=== PATIENT | male | born 1955 | race Caucasian/White ===

== ENCOUNTER 2023-12-12 06:35 | Emergency (ER) | payer OTHER, SELFPAY ==
[2023-12-12 06:52] VITALS: BP 160/110; PULSE 88; TEMP 36.4; O2SAT 96; O2SAT 97; BMI 30.2
[2023-12-12 06:53] VITALS: BP 149/106
[2023-12-12 07:01] VITALS: O2SAT 97
--- NOTE | 2023-12-12 07:18 | ED.GENADUL1 ---
HPI HPI - General Adult General Chief complaint: Shortness of Breath/Dyspnea Stated complaint: sinus fever pain all over Time Seen by Provider: 12/12/23 07:03 Source: patient Mode of arrival: walk-in Limitations: no limitations History of Present Illness HPI narrative: This patient is here planing of some shortness of breath. He says he woke up about 4:00 and had profound nasal stuffiness congestion and pressure in his sinuses. He took some medications he actually says he is feeling better now. We have no previous records of him here. He quit smoking back in 1975 but occasionally uses marijuana. He denies any history of hypertension diabetes or heart disease. He is not running a fever at home. He blew some yellow nasal discharge out earlier but not having any nasal congestion at this time. Denies any heaviness pressure or discomfort in his chest. No dyspnea with exertion. He does not see his doctor on a regular basis. He does not like coming to the hospital. He states he just drove a family member home from the [facility] for pneumonia and he is worried about having pneumonia. He has not had COVID vaccines or any pneumonia vaccines. Related Data Allergies Allergy/AdvReac Type Severity Reaction Status Date / Time codeine Allergy Hives Verified 12/12/23 06:59 opioids Allergy Hives Uncoded 12/12/23 06:59 Opioid HPI Opioid Management Most Recent Opioid Data: Last Pain Scale 8 12/12/23 07:02 Last ED Pain Assessment 12/12/23 07:01 Exam Narrative Exam Narrative: This patient is awake alert no apparent distress says he feels much better at this time does not have the facial pain and sinus pressure that he had earlier. There is no respiratory distress. His color is good his skin is warm and dry. His blood pressure is modestly elevated. He states he has never been told that his pressures been high at his doctor's office or at home. Cognition and mental status are normal. There is no neurological symptomatology or deficits. He has no nuchal rigidity or headache at this time. His lungs are completely clear with no wheeze rales rhonchi or prolonged exhalation's. He is not coughing. Heart sounds are normal with no clicks rubs gallops or murmur. Extremities show no evidence of phlebitis edema or tenderness. He has no abdominal symptomatology at all. Constitutional Vital Signs, click to edit/add: Last Vital Signs Temp 97.6 F 12/12/23 06:52 Pulse 88 12/12/23 06:52 Resp 20 12/12/23 06:52 BP 149/106 H 12/12/23 06:53 Pulse Ox 97 12/12/23 07:01 O2 Del Method Room Air 12/12/23 07:01 Course Vital Signs Vital signs: Vital Signs Temperature 97.6 F 12/12/23 06:52 Pulse Rate 88 12/12/23 06:52 Respiratory Rate 20 12/12/23 06:52 Blood Pressure 160/110 H 12/12/23 06:52 Pulse Oximetry 97 12/12/23 06:52 Oxygen Delivery Method Room Air 12/12/23 06:52 Temperature 97.6 F 12/12/23 06:52 Pulse Rate 88 12/12/23 06:52 Respiratory Rate 20 12/12/23 06:52 Blood Pressure 149/106 H 12/12/23 06:53 Pulse Oximetry 97 12/12/23 07:01 Oxygen Delivery Method Room Air 12/12/23 07:01 Medical Decision Making MDM Narrative Medical decision making narrative: Patient presents mostly concerned about having pneumonia because of exposure to a family member but he has no symptomatology suggestive yet. Nonetheless the chest x-ray and laboratory testing was done. Chest x-ray is negative for acute process. His twelve-lead EKG showed sinus rhythm with a right bundle branch block but no ST segment elevation, no arrhythmia. His BNP is normal. Routine chemistries are normal. He will be given a copy of these test results. I strongly encouraged him to consider getting the pneumococcal vaccine by his primary care practitioner. Since he does not have any ongoing sinusitis type symptomatology I do not believe he really needs any antibiotics at this time. Lab Data Labs: Lab Results 12/12/23 Range/Units 07:28 WBC 10.7 (4.0-11.0) 10^3/uL RBC 4.75 (4.70-6.10) 10^6/uL Hgb 15.1 (14.0-18.0) g/dL Hct 44.3 (42.0-54.0) % MCV 93.3 (80.0-94.0) fL MCH 31.8 (25.9-34.0) pg MCHC 34.1 (29.9-35.2) g/dL RDW 12.7 (11.0-15.0) % Plt Count 242 (150-450) 10^3/uL MPV 9.4 L (9.5-13.5) fL Neut % (Auto) 64.4 (43.0-75.0) % Lymph % (Auto) 20.6 (20.5-60.0) % [place] % (Auto) 9.0 (1.7-12.0) % Eos % (Auto) 4.9 (0.9-7.0) % Baso % (Auto) 0.8 (0.2-2.0) % Neut # (Auto) 6.9 H (1.4-6.5) 10^3/uL Lymph # (Auto) 2.2 (1.2-3.8) 10^3/uL [place] # (Auto) 1.0 H (0.3-0.8) 10^3/uL Eos # (Auto) 0.5 (0.0-0.7) 10^3/uL Baso # (Auto) 0.1 (0.0-0.1) 10^3/uL Abs Immat Gran (auto) 0.03 (0.00-0.03) 10^3/uL Imm/Tot Granulo (auto) 0.3 (0.0-0.5) % Sodium 143 (136-145) mmol/L Potassium 4.0 (3.5-5.1) mmol/L Chloride 105 (98-107) mmol/L Carbon Dioxide 26.9 (21.0-32.0) mmol/L Anion Gap 15.1 BUN 12.0 (7.0-18.0) mg/dL Creatinine 0.81 (0.70-1.30) mg/dL Est GFR ( Amer) >60 (>=60) Est GFR (Non-Af Amer) >60 (>=60) BUN/Creatinine Ratio 14.8 Glucose 106 (74-106) mg/dL Calcium 9.5 (8.5-10.1) mg/dL Total Bilirubin 0.7 (0.2-1.0) mg/dL AST 25 (15-37) U/L ALT 47 (16-63) U/L Alkaline Phosphatase 48 (46-116) U/L NT-Pro-B Natriuret Pep 94.0 (<=900.0) pg/mL Total Protein 6.9 (6.4-8.2) g/dL Albumin 3.6 (3.4-5.0) g/dL Globulin 3.3 g/dL Albumin/Globulin Ratio 1.1 Discharge Plan Discharge Stand Alone Forms: Work/School Release, Portal Instructions Chief Complaint: Shortness of Breath/Dyspnea Clinical Impression: Dyspnea, unspecified Patient Disposition: Home, Self-Care Time of Disposition Decision: 08:47 Print Language: Malawian Additional Instructions: Consider getting a pneumococcal vaccine by your primary care doctor. Referrals: Physician,Non-Staff, MD [Primary Care Provider] - 1 week
--- NOTE | 2023-12-12 07:19 | ECG_ITS ---
The [facility] Test Date: 2023-12-12 Pat Name: CONNIE DINH Department: Room: - Gender: Male Practice Administrator: : 1955 Requested By: [id number] Order Number: [id number] Reading MD: RICHIE SALTER Measurements Intervals [place] Rate: 79 P: 52 ME: 142 QRS: 117 QRSD: 128 T: 40 QT: 404 QTc: 439 Interpretive Statements 1100 Sinus rhythm 2450 Right bundle branch block 7100 Abnormal right axis deviation 9150 abnormal ECG Electronically Signed On 12-12-2023 10:53:41 EDT by RICHIE SALTER
--- NOTE | 2023-12-12 07:19 | XR_ITS ---
The [address] [address] Patient Name: CONNIE DINH MRN: [id number] date: 1955 Sex: M Assigned Patient Location: ER Current Patient Location: ER Accession/Order Number: [id number] Exam Date: 12/12/2023 07:30 Report Date: 12/12/2023 07:43 At the request of: MANOHAR CROCKER Procedure: XR chest 2V EXAMINATION: XR chest 2V HISTORY: Shortness of breath COMPARISON: XR chest 04/14/2022 FINDINGS: LUNGS: No significant pulmonary parenchymal abnormalities. VASCULATURE: No increased pulmonary vasculature. PLEURA: No pneumothorax, effusion, or pleural thickening. CARDIAC: No cardiomegaly or cardiac silhouette abnormality. MEDIASTINUM: No visible mass or adenopathy. BONES: No fracture or visible bone lesion. OTHER: Negative. XR/XR chest 2V IMPRESSION: 1. No acute cardiopulmonary process. Stable chest. Electronically authenticated by: SOLANGE MAN Date: 12/12/2023 07:43
[2023-12-12 07:35] LABS: Basophils Absolute Auto 0.1 10^3/uL (0.0-0.1); Basophils Percent Auto 0.8 % (0.2-2.0); Eosinophils Absolute Auto 0.5 10^3/uL (0.0-0.7); Eosinophils Percent Auto 4.9 % (0.9-7.0); Hematocrit 44.3 % (42.0-54.0); Hemoglobin 15.1 g/dL (14.0-18.0); Immature Granulocytes Abs Auto 0.03 10^3/uL (0.00-0.03); Immature Granulocytes Pct Auto 0.3 % (0.0-0.5); Lymphocytes Absolute Auto 2.2 10^3/uL (1.2-3.8); Lymphocytes Percent Auto 20.6 % (20.5-60.0); Mean Corpuscular HGB Conc 34.1 g/dL (29.9-35.2); Mean Corpuscular Hemoglobin 31.8 pg (25.9-34.0); Mean Corpuscular Volume 93.3 fL (80.0-94.0); Mean Platelet Volume 9.4 fL (9.5-13.5); Neutrophils Absolute Auto 6.9 10^3/uL (1.4-6.5); Neutrophils Percent Auto 64.4 % (43.0-75.0); Platelet Count 242 10^3/uL (150-450); Red Blood Count 4.75 10^6/uL (4.70-6.10); Red Cell Distribution Width 12.7 % (11.0-15.0); White Blood Count 10.7 10^3/uL (4.0-11.0)
[2023-12-12 08:11] LABS: Alanine Aminotransferase 47 U/L (16-63); Albumin Globulin Ratio 1.1; Albumin Level 3.6 g/dL (3.4-5.0); Alkaline Phosphatase 48 U/L (46-116); Anion Gap 15.1; Aspartate Amino Transferase 25 U/L (15-37); BUN Creatinine Ratio 14.8; Bilirubin Total 0.7 mg/dL (0.2-1.0); Calcium 9.5 mg/dL (8.5-10.1); Carbon Dioxide 26.9 mmol/L (21.0-32.0); Chloride 105 mmol/L (98-107); Estimated GFR (African America >60 (>=60); Estimated GFR (Non-African Ame >60 (>=60); Globulin 3.3 g/dL; Glucose 106 mg/dL (74-106); Sodium 143 mmol/L (136-145); Total Protein 6.9 g/dL (6.4-8.2)
[2023-12-12 08:53] VITALS: BP 122/84
[2023-12-12 09:23] LABS: D Dimer 0.88 mg/L FEU (<=0.59)
== END 2023-12-12 08:54 | disposition home or self-care (01) ==
PROVIDERS: Emergency Provider Emergency Medicine Emergency Medical Services
DX: R06.00 Dyspnea, unspecified (principal); Z87.891 Personal history of nicotine dependence; F12.90 Cannabis use, unspecified, uncomplicated; Z28.310 Unvaccinated for COVID-19; Z28.39 Other underimmunization status
CPT/HCPCS: 36415; 71046; 80053; 83880; 85025; 85378; 93005; 99285

== ENCOUNTER 2024-08-03 14:30 | Outpatient (OUT) | payer MEDICARE, SELFPAY ==
--- NOTE | 2024-08-03 14:44 | XR_ITS ---
The [place] [id number] Patient Name: CONNIE DINH MRN: [id number] date: 1955 Sex: M Assigned Patient Location: [facility] Current Patient Location: [facility] Accession/Order Number: [id number] Exam Date: 08/03/2024 15:15 Report Date: 08/03/2024 15:17 At the request of: CRISTINA TAMAYO Procedure: XR knee RT 4V RIGHT KNEE - 4 views CLINICAL HISTORY: Right Knee Pain COMPARISON: None FINDINGS: Vascular calcifications. Moderate degenerative changes with medial weightbearing and patellofemoral joint space narrowing. Chondrocalcinosis of the menisci. XR/XR knee RT 4V IMPRESSION: MODERATE DEGENERATIVE CHANGES INVOLVING THE RIGHT KNEE WITHOUT ACUTE BONY PROCESS. Impression dictated by: Bebeto Weaver Jr., DPatriciaOPatricia08/03/2024 3:17 PM Dictation Location: [place] [address] Electronically authenticated by: [id number] Y Date: 08/03/2024 15:17
--- NOTE | 2024-08-03 14:44 | XR_ITS ---
[place] [id number] Patient Name: CONNIE DINH MRN: [id number] date: 1955 Sex: M Assigned Patient Location: [facility] Current Patient Location: [facility] Accession/Order Number: [id number] Exam Date: 08/03/2024 15:14 Report Date: 08/03/2024 15:16 At the request of: CRISTINA TAMAYO Procedure: XR cervical spine 5V CERVICAL SPINE 6 views: CLINICAL HISTORY: Cervicalgia COMPARISON: Cervical spine 06/05/2019 FINDINGS: Vertebral body heights appear maintained. Mild endplate and facet joint degenerative changes without significant disc height loss. No severe bony neural foraminal narrowing. No prevertebral soft tissue swelling. XR/XR cervical spine 5V IMPRESSION: PREDOMINANTLY ENDPLATE AND FACET JOINT DEGENERATIVE CHANGES WITHOUT SIGNIFICANT DISC HEIGHT LOSS. NO ACUTE BONY PROCESS. Impression dictated by: Bebeto Weaver Jr., D.OPatricia08/03/2024 3:16 PM Dictation Location: [place] [address] Electronically authenticated by: [id number] Y Date: 08/03/2024 15:16
--- OUTSIDE RECORDS SUMMARY | 2024-08-03 14:57 | XMS_ITS | CCD ---
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 [address] [place] [address], [place] GFR/1.73 sq M.predicted among non-blacks MDRD (S/P/Bld) [Vol rate/Area] mL/min/{1.73_m2} Normal >60 [facility] Comment on above: Performed By: #### 0 0121 #### [facility] [address] [place] [address], [place] Glucose [Mass/Vol] 126 mg/dL High 70-100 [facility] Comment on above: Performed By: #### 0 0121 #### [facility] [address] [place] [address], [place] Potassium [Moles/Vol] 4.4 mmol/L Normal 3.5-5.1 [facility] Comment on above: Performed By: #### 0 0121 #### [facility] [address] [place] [address], [place] Protein [Mass/Vol] 7.3 g/dL Normal 6.0-8.3 [facility] Comment on above: Performed By: #### 0 0121 #### [facility] [address] [place] [address], [place] Sodium [Moles/Vol] 140 mmol/L Normal 136-145 [facility] Comment on above: Performed By: #### 0 0121 #### [facility] [address] [place] [address], [place] Urea nitrogen [Mass/Vol] 11 mg/dL Normal 7-25 [facility] Comment on above: Performed By: #### 0 0121 #### [facility] [address] [place] [address], [place] TESTOSTERONE, TOTAL ILon IL Normal [facility] Comment on above: Result Comment: Test Performed by [facility] [address] [place] [address] - Released 09/04/2020 02:51 Testosterone [Mass/Vol] 463 ng/dL Normal 220-1000 [facility] MRI CERVICAL SPINE BELLE Connell 07-02-2019 Mild multilevel degenerative changes of the cervical spine without high-grade neuroforaminal or spinal canal stenosis. [facility] [place] MRI of the cervical spine without contrast. History: Cervical spondylosis with myelopathy Technique: Multiplanar multisequence MRI of the cervical spine was performed without contrast. Comparison: None available Findings: No cervical cord signal abnormality is identified. No aggressive bone marrow signal abnormality. Cervical spine vertebral body heights are preserved. Straightening of the cervical lordosis. Disc desiccation throughout the cervical spine. Intervertebral disc heights are preserved. Mild facet arthropathy throughout cervical spine. C2-C3: No significant disc bulge. Moderate facet arthropathy. Mild right neuroforaminal stenosis. No spinal canal stenosis. C3-C4: No significant disc bulge, spinal canal or neuroforaminal stenosis. C4-C5: No significant disc bulge, spinal canal or neuroforaminal stenosis. C5-C6: No significant disc bulge, spinal canal or neuroforaminal stenosis. C6-C7: No significant disc bulge, spinal canal or neuroforaminal stenosis. C7-T1: No significant disc bulge, spinal canal or neuroforaminal stenosis. Visualized paravertebral soft tissues are grossly unremarkable. [place], [place] Demario, Chpo Incoming R adiant Results From [employer] - 07/02/2019 5:10 PM EDT MRI of the cervical spine without contrast. History: Cervical spondylosis with myelopathy Technique: Multiplanar multisequence MRI of the cervical spine was performed without contrast. Comparison: None available Findings: No cervical cord signal abnormality is identified. No aggressive bone marrow signal abnormality. Cervical spine vertebral body heights are preserved. Straightening of the cervical lordosis. Disc desiccation throughout the cervical spine. Intervertebral disc heights are preserved. Mild facet arthropathy throughout cervical spine. C2-C3: No significant disc bulge. Moderate facet arthropathy. Mild right neuroforaminal stenosis. No spinal canal stenosis. C3-C4: No significant disc bulge, spinal canal or neuroforaminal stenosis. C4-C5: No significant disc bulge, spinal canal or neuroforaminal stenosis. C5-C6: No significant disc bulge, spinal canal or neuroforaminal stenosis. C6-C7: No significant disc bulge, spinal canal or neuroforaminal stenosis. C7-T1: No significant disc bulge, spinal canal or neuroforaminal stenosis. Visualized paravertebral soft tissues are grossly unremarkable. IMPRESSION: Mild multilevel degenerative changes of the cervical spine without high-grade neuroforaminal or spinal canal stenosis. [facility] [place] [place] MRI CERVICAL SPINE WO CONTRA STon 07-01-2019 MRI CERVICAL SPINE WO CONTRAST MRI of the cervical spine without contrast. History: Cervical spondylosis with myelopathy Technique: Multiplanar multisequence MRI of the cervical spine was performed without contrast. Comparison: None available Findings: No cervical cord signal abnormality is identified. No aggressive bone marrow signal abnormality. Cervical spine vertebral body heights are preserved. Straightening of the cervical lordosis. Disc desiccation throughout the cervical spine. Intervertebral disc heights are preserved. Mild facet arthropathy throughout cervical spine. C2-C3: No significant disc bulge. Moderate facet arthropathy. Mild right neuroforaminal stenosis. No spinal canal stenosis. C3-C4: No significant disc bulge, spinal canal or neuroforaminal stenosis. C4-C5: No significant disc bulge, spinal canal or neuroforaminal stenosis. C5-C6: No significant disc bulge, spinal canal or neuroforaminal stenosis. C6-C7: No significant disc bulge, spinal canal or neuroforaminal stenosis. C7-T1: No significant disc bulge, spinal canal or neuroforaminal stenosis. Visualized paravertebral soft tissues are grossly unremarkable. IMPRESSION: Mild multilevel degenerative changes of the cervical spine without high-grade neuroforaminal or spinal canal stenosis. Interpreted by: Mark Galeano DO Signed by: Mark Galeano DO 07/02/19 Final result Normal [facility] CNOVon 03-31-2018 CNOV Office Visit (UROLLN) CONNIE DINH ([id number]) 1955 MDate Time Provider Qgbfruncgd93/13/18 8:00 AM BREANNA CHACON During your visit today, we recorded the following information about you: Pulse Blood pressure Weight 77/minute 140/93 111.5 kgBreanna Chacon MD 03/31/2018 1:07 PM SignedTerry Patsy Bolden [facility] [address] [address]JuUsha is a 62 year old male and is here today at the request of MD [id number] [facility] [address].My final recommendation will be communicated back to the requesting physicianby way of shared medical record or letter.Mr. Dinh presents with chief complaints of:Hydrocele leftno voiding difficultyspinal injuryHISTORY OF PRESENT ILLNESS:? Location: testicle left? Pain Character: none? Severity Scale: mild? Duration: 2 yearsPAST MEDICAL HISTORYDiagnosis Date- HydrocelePAST SURGICAL HISTORYProcedure Laterality Date- INGUINAL HERNIA REPAIR HX- VASECTOMYNo family history on file.Social HistorySubstance Use Topics- Smoking status: Former Smoker- Smokeless tobacco: Never Used- Alcohol use Not on fileMEDICATIONS:Current Outpatient Prescriptions:celecoxib 400 mg capsule Take 400 mg by mouth twice daily.cyclobenzaprine (FLEXERIL) 10 mg tabletfluconazole (DIFLUCAN) 100 mg tabletCyclobenzap and Irritant Cntr Irr2 10 mg kitNo current facility-administered medications for this visit.ALLERGY:ALLERGIESAll ergen Reactions- Penicillin G Hives REVIEW OF SYSTEMS GENERAL: No fever, no fatigue and no weight loss.HEAD AND NECK: No headache, no blurred vision and no hearing loss.CARDIOVASCULAR: No chest pain, no palpitations and no leg edema.RESPIRATORY: No cough, wheezing and no shortness of breath.: As indicated in HPI.GI: No epigastric discomfort, no blood in stool and no changes in bowel habits.MUSCLOSKELETAL: No neck pain, no back anin and no joint pain.SKIN: No varicose veins, no rash and no abnormal itching.NEUROLOGICAL: No numbness, no seizures and no tremor.BLOOD: No ekimosis, no hematomas or no bleeding from the gums. PHYSICAL EXAM: VITALS: BP 140/93 Pulse 77 Wt 111.5 kg (245 lb 14.4 oz) BMI 29.54kg/m?GENERAL: Alert, oriented and in no distress.HEAD:Conjuctiva: no palorSclera: no jaundiceNECK: No enlarged thyroid, no palpable lymph nodes, and no engorged neck veins.HEART: Regular, no pericardial rubCHEST: Bilateral symetrical, no crepitations.ABDOMEN: Soft, non tender with no masses or organomegaly. No CVA tenderness.HERNIA: NegativeEXTREMITIES: No leg edema, No joint swellingGENITALIA: Penis:no lesions, masses, or deformities.Urethral meatus: normal size, no dischargeScrotum: no lesions, cysts, rashes.Testes : NormalEpididymes: NormalHydroceles: NoneSpermatoceles: NoneVaricoceles: NoneURO REC EX Anus and perineum wnl.No hemorrhoidsSphincter tone normal, no mass.Prostate: size (25 grams), symmetrical, nontender, w/o nodules.IMPRESSION: (Diagnostic Possibilities):HydroceleBP H without obst. and weak streamvasectomyPLAN: (Management Options):reassured for hydroceleto f/[facility] Mer[facility] Ott 03/31/2018 8:39 AM [facility]: Lab is open 7:30am to 6pm M-, open 7:30am -5pm on Wednesday and [id number]-[id number] Wednesday.Routine Lab Orders 45 days after they are entered. If your lab ordersexpire, you may be required to wait in the lab while they are reinstatedFUTURE ORDERS are lab tests to be completed on the ?EXPECTED? date. Theseorders 45 days after the expected date.STANDING ORDERS are recurring orders with an expiration date. The intervalwill indicate how often the test should be completed.FASTING LAB means nothing to eat or drink (except water) 10-12 hours beforeyour blood is drawn.CT/MRI/IVP If you have one of these radiology exams ordered along with bloodwork, please complete the blood work at least one day prior to the scheduledexam.Breanna Chacon MD 03/31/2018 1:07 PM Signed.Referring Provider: KIRA DUTTA [[id number]]Allergies As of Date: 03/31/2018 Noted Allergy ReactionPENICILLIN G [birth year]19/1971 4 - HivesDate Reviewed: 03/31/2018Reviewed by: Hetal Cesar - Tali AssessedReason for Visit: Consult [173]Primary Visit Diagnosis:BPH without urinary obstruction [N40.0] Other Visit Diagnoses:H/O: vasectomy [Z98.52] Hydrocele in adult [N43.3]Prescriptions as of 03/31/2018 Sig: CELECOXIB 400 MG CAPSULE Take 400 mg by mouth twice da* CYCLOBENZAPRINE 10 MG TABLET FLUCONAZOLE 100 MG TABLET CYCLOBENZAPRINE 10 MG AND IRR*Problem List As Of Date 03/31/2018 Noted Resolved Hydrocele [N43.3] INVALID FOR* H/O: vasectomy [Z98.52] INVALID FOR* BPH without urinary obstruction [N40.0] INVALID FOR* Hydrocele in adult [N43.3] INVALID FOR* Other instructions from your clinician: [facility] LAB FACTS LAB HOURS: Lab is open 7:30am to 6pm M-, open 7:30am -5pm on Wednesday and open 8am-12pm Wednesday. Routine Lab Orders 45 days after they are entered. If your lab orders , you may be required to wait in the lab while they are reinstated FUTURE ORDERS are lab tests to be completed on the ?EXPECTED? date. These orders 45 days after the expected date. STANDING ORDERS are recurring orders with an expiration date. The interval will indicate how often the test should be completed. FASTING LAB means nothing to eat or drink (except water) 10-12 hours before your blood is drawn. CT/MRI/IVP If you have one of these radiology exams ordered along with blood work, please complete the blood work at least one day prior to the scheduled exam.Disposition: Return if symptoms worsen or fail to improve.Follow-up and Disposition History RecordedLetter TextLa Paz Regional Hospitalpadma Dinh Susan M.D.[facility] [address], [place] [address]Hyeept: [phone]: [phone] 2017KIRA DUTTA MD[address]CCHERRINGTON [facility] [place] [address]CIO#: [id number] David,Thank you for referring Connie Dinh for a Urological consultation. [facility]recent[facility].His evaluation indicated left hydrocele.I appreciate the opportunity to participate in his care.Please don't hesitate to contact me with any questions or concerns.Sincerely,Breanna Chacon MDEncounter Number: [id number] Status:Closed by BREANNA CHACON MD on 03/31/18 Normal [facility] PROGRESSon 03-31-2018 Protein mass conc HNO ID: [id number] Author: Breanna Chacon Service: (none) Author Type: Physician Type: Progress Notes Filed: 03/31/2018 1:07 PM Note Text: . Normal [facility] Protein mass conc HNO ID: [id number] thor: Breanna Reynaervice: (none)Author Type: PhysicianType: Progress NotesFiled: 03/31/2018 1:07 PMNote Text:Connie Dinh[address] [facility] [address] [address]MsUsha is a 62 year old male and is here today at the request of MD [id number] [place] [address].My final recommendation will be communicated back to the requestingphysician by way of shared medical record or letter.Mr. Dinh presents with chief complaints of:Hydrocele leftno voiding difficultyspinal injuryHISTORY OF PRESENT ILLNESS:? Location: testicle left? Pain Character: none? Severity Scale: mild? Duration: 2 yearsPAST MEDICAL HISTORYDiagnosis Date- HydrocelePAST SURGICAL HISTORYProcedure Laterality Date- INGUINAL HERNIA REPAIR HX- VASECTOMYNo family history on file.Social HistorySubstance Use Topics- Smoking status: Former Smoker- Smokeless tobacco: Never Used- Alcohol use Not on fileMEDICATIONS:Current Outpatient Prescriptions:celecoxib 400 mg capsule Take 400 mg by mouth twice daily.cyclobenzaprine (FLEXERIL) 10 mg tabletfluconazole (DIFLUCAN) 100 mg tabletCyclobenzap and Irritant Cntr Irr2 10 mg kitNo current facility-administered medications for this visit.ALLERGY:ALLERGIESAll ergen Reactions- Penicillin G Hives REVIEW OF SYSTEMS GENERAL: No fever, no fatigue and no weight loss.HEAD AND NECK: No headache, no blurred vision and no hearing loss.CARDIOVASCULAR: No chest pain, no palpitations and no leg edema.RESPIRATORY: No cough, wheezing and no shortness of breath.: As indicated in HPI.GI: No epigastric discomfort, no blood in stool and no changes in bowelhabits.MUSCLOSKELETAL : No neck pain, no back anin and no joint pain.SKIN: No varicose veins, no rash and no abnormal itching.NEUROLOGICAL: No numbness, no seizures and no tremor.BLOOD: No ekimosis, no hematomas or no bleeding from the gums. PHYSICAL EXAM: VITALS: BP 140/93 Pulse 77 Wt 111.5 kg (245 lb 14.4 oz) BMI29.54 kg/m?GENERAL: Alert, oriented and in no distress.HEAD:Conjuctiva: no palorSclera: no jaundiceNECK: No enlarged thyroid, no palpable lymph nodes, and no engorged neckveins.HEART: Regular, no pericardial rubCHEST: Bilateral symetrical, no crepitations.ABDOMEN: Soft, non tender with no masses or organomegaly. No CVAtenderness.HERNIA: NegativeEXTREMITIES: No leg edema, No joint swellingGENITALIA: Penis:no lesions, masses, or deformities.Urethral meatus: normal size, no dischargeScrotum: no lesions, cysts, rashes.Testes : NormalEpididymes: NormalHydroceles: NoneSpermatoceles: NoneVaricoceles: NoneURO REC EX Anus and perineum wnl.No hemorrhoidsSphincter tone normal, no mass.Prostate: size (25 grams), symmetrical, nontender, w/o nodules.IMPRESSION: (Diagnostic Possibilities):HydroceleBP H without obst. and weak streamvasectomyPLAN: (Management Options):reassured for hydroceleto f/u psa w pcp [facility] Puja Chacon MD [facility] CNOVon 03-14-2018 CNOV Office Visit (GENSMN) CONNIE DINH ([id number]) 1955 [address] Time Provider Sliclqhyfk44/26/18 3:20 PM KIRA DUTTA During your visit today, we recorded the following information about you:Chidi Jolly MD 03/14/2018 3:08 PM SignedName: Connie FreedmanN: [id number]: March 14, 2018Patient seen and examined in clinicThis is a 62 y/o male returning to clinic after he was last sen 02/04/18 for a1y history of left scrotal swelling with pain in the setting of a history ofopen left inguinal hernia repair with mesh in 2013. At his last visit, anultrasound was recommended and in the interim, that demonstrates bilateralhydroceles. At follow-up, he reports today continued daily pain and swellingthat does not reduce at night while supine.A/P: 62M with bilateral hydroceles-No hernias evident-Urology consultation-seen/examined w Dr. Martell were no vitals taken for this visit.PHYSICAL EXAM:GENERAL: well dressed and well nourishedHEENT: NC and mucous membranes moistNECK: FROMNODES: DeferredSKIN: clean dry and intactBACK: No CVAT, palpable bony abnormalitiesLUNGS: Unlabored respirations on RACV: Regular rate and rhythmABDOMEN: Soft, NTNDGU: scrotal edemaEXTREMITIES: No edema, adequate circulationNEURO: A and O x3 CN II-XII intact, 5/5 motor throughout, grossly normalsensationCurrent Outpatient Prescriptions:Cyclobenzap and Irritant Cntr Irr2 10 mg kit Disp: Rfl:celecoxib 400 mg capsule Take 400 mg by mouth twice daily. Disp: Rfl:fluconazole (DIFLUCAN) 100 mg tablet Disp: Rfl:cyclobenzaprine (FLEXERIL) 10 mg tablet Disp: Rfl:No current facility-administered medications for this visit. Chidi Jolly, SANDYGY-6 FellowKIRA DUTTA MD 03/14/2018 3:34 PM SignedMr Fabrizio is here for a follow up to review his results. He had an US of thescrotum which demonstrated bilateral hydroceles and no hernia recurrence. Ihave placed a consult for urology for him otherwise he can follow up with me asneeded.Referring Provider: KIRA DUTTA [[id number]]Allergies As of Date: 03/14/2018 Noted Allergy ReactionPENICILLIN G 04/19/1971 4 - HivesDate Reviewed: 03/14/2018Reviewed by: Kira Dutta - Fully AssessedPrimary Visit Diagnosis:Hydrocele, unspecified hydrocele type [N43.3]Order(s):CONSULT TO UROLOGY [9041] Order #: [id number]: 1Prescriptions as of 03/14/2018 Sig: CYCLOBENZAPRINE 10 MG AND IRR* CELECOXIB 400 MG CAPSULE Take 400 mg by mouth twice da* FLUCONAZOLE 100 MG TABLET CYCLOBENZAPRINE 10 MG TABLETProblem List As Of Date: 03/14/2018(None) Status:Closed by KIRA DUTTA MD on 03/14/18 Normal [facility] PROGRESSon 03-14-2018 Protein mass conc HNO ID: [id number] thor: Kira Soliz: (none)Author Type: PhysicianType: Progress NotesFiled: 03/14/2018 3:34 PMNote Text:Mr Dinh is here for a follow up to review his results. He had an US ofthe scrotum which demonstrated bilateral hydroceles and no herniarecurrence. I have placed a consult for urology for him otherwise he canfollow up with me as needed. Normal [facility] Protein mass conc HNO ID: [id number] thor: Chidi (Moshe) Jovanny: (none)Author Type: FellowType: Progress NotesFiled: 03/14/2018 3:08 PMNote Text:Name: Connie SethRN: [id number]: March 14, 2018Patient seen and examined in clinicFeli is a 62 y/o male returning to clinic after he was last sen 02/04/18or a 1y history of left scrotal swelling with pain in the setting of ahistory of open left inguinal hernia repair with mesh in 2013. At his lastvisit, an ultrasound was recommended and in the interim, that demonstratesbilateral hydroceles. At follow-up, he reports today continued daily painand swelling that does not reduce at night while supine.A/P: 62M with bilateral hydroceles-No hernias evident-Urology consultation-seen/examined w Dr. Martell were no vitals taken for this visit.PHYSICAL EXAM:GENERAL: well dressed and well nourishedHEENT: NC and mucous membranes moistNECK: FROMNODES: DeferredSKIN: clean dry and intactBACK: No CVAT, palpable bony abnormalitiesLUNGS: Unlabored respirations on RACV: Regular rate and rhythmABDOMEN: Soft, NTNDGU: scrotal edemaEXTREMITIES: No edema, adequate circulationNEURO: A and O x3 CN II-XII intact, 5/5 motor throughout, grossly normalsensationCurrent Outpatient Prescriptions:Cyclobenzap and Irritant Cntr Irr2 10 mg kit Disp: Rfl:celecoxib 400 mg capsule Take 400 mg by mouth twice daily. Disp: Rfl:fluconazole (DIFLUCAN) 100 mg tablet Disp: Rfl:cyclobenzaprine (FLEXERIL) 10 mg tablet Disp: Rfl:No current facility-administered medications for this visit. Chidi Jolly, MDPGY-6 Fellow Normal [facility] PROGRESSon 02-04-2018 Protein mass conc HNO ID: [id number] thor: Guera (Rt) Jaiden Teixeira: (none)Author Type: TechnicianType: Progress NotesFiled: 02/04/2018 1:55 PMNote Text: Radiology Service Progress NotePATIENT NAME: Connie SethRN: [id number] OF SERVICE: February 04, 2018TIME: 1:55 PMPATIENT IDENTITY VERIFICATION COMPLETED USING TWO (2) METHODS: Patientconfirmed name verbally and Date of .PATIENT GENDER DATA: MalePATIENT RELEVANT IMPLANT DATA REVIEWED: Not ApplicableRADIOLOGY DEPARTMENT: UltrasoundPERIPHERAL IV DATA: Not applicableSIGNED BY: Guera Teixeira RdmsOct2017 1:55 PM Normal [facility] US DOPPLER COMPLETEon 2017 US DOPPLER COMPLETE * * *Final Report* * *DATE OF EXAM: Feb 04 2018 1:54PM [facility] 1033 - US DOPPLER COMPLETE / REASON: Scrotal mass * * * * Physician Interpretation * * * * EXAMINATION: SCROTAL ULTRASOUND WITH DOPPLER IMAGINGCLINICAL HISTORY: Left scrotal massTECHNIQUE: Sonography of the scrotal contents with color flow and spectral Doppler imaging of the testicular vasculature was performed. Images were obtained and stored in a permanent archive.MQ: US_1COMPARISON: NoneRESULT:RIGHT TESTIS: Size: 4.6 x 3.2 x 3.3 cm Parenchyma: Homogeneous with no calcifications or mass. Epididymis: Normal. The right epididymal head measures approximately 1.2 x 0.8 x 1.5 cm. Vascularity: Normal intratesticular arterial and venous flow with normal spectral waveforms.LEFT TESTIS: Size: 4.8 x 2.9 x 3.3 cm Parenchyma: Homogeneous with no calcifications or mass. Epididymis: Normal. The left epididymal head measures approximately 9 x 6 x 9 mm. Vascularity: Normal intratesticular arterial and venous flow with normal spectral waveforms.HYDROCELE: There are bilateral hydroceles, left greater than right.VARICOCELE: noneThere is no hyperemia to suggest epididymoorchitis. No sonographic evidence for testicular torsion.IMPRESSION:No testicular mass. No sonographic evidence for testicular torsion. No evidence for epididymoorchitis.Bilatera l hydroceles, left greater than right.Buccaro: GERARD Transcribe Date/Time: Feb 04 2018 1:58PDictated by : Luzmaria HARRELL examination was interpreted and the report reviewed and electronically signed by: WES JONES MD on Feb 04 2018 4:01PM [id number] Normal [facility] US SCROTUM AND CONTENTSon US SCROTUM AND CONTENTS * * *Final Report* * *DATE OF EXAM: Feb 04 2018 1:54PM [facility] 1063 - US SCROTUM AND CONTENTS / REASON: Scrotal mass * * * * Physician Interpretation * * * * EXAMINATION: SCROTAL ULTRASOUND WITH DOPPLER IMAGINGCLINICAL HISTORY: Left scrotal massTECHNIQUE: Sonography of the scrotal contents with color flow and spectral Doppler imaging of the testicular vasculature was performed. Images were obtained and stored in a permanent archive.MQ: [facility]_1COMPARISON: NoneRESULT:RIGHT TESTIS: Size: 4.6 x 3.2 x 3.3 cm Parenchyma: Homogeneous with no calcifications or mass. Epididymis: Normal. The right epididymal head measures approximately 1.2 x 0.8 x 1.5 cm. Vascularity: Normal intratesticular arterial and venous flow with normal spectral waveforms.LEFT TESTIS: Size: 4.8 x 2.9 x 3.3 cm Parenchyma: Homogeneous with no calcifications or mass. Epididymis: Normal. The left epididymal head measures approximately 9 x 6 x 9 mm. Vascularity: Normal intratesticular arterial and venous flow with normal spectral waveforms.HYDROCELE: There are bilateral hydroceles, left greater than right.VARICOCELE: noneThere is no hyperemia to suggest epididymoorchitis. No sonographic evidence for testicular torsion.IMPRESSION:No testicular mass. No sonographic evidence for testicular torsion. No evidence for epididymoorchitis.Bilatera l hydroceles, left greater than right.Buccaro: [facility] Transcribe Date/Time: Feb 04 2018 1:58PDictated by : Luzmaria HARRELL examination was interpreted and the report reviewed and electronically signed by: WES JONES MD on Feb 04 2018 4:01PM [id number] Normal [facility] CNOVon 02-03-2018 CNOV Office Visit (DANTE) CONNIE DINH ([id number]) 1955 MDate Time Provider Xnngsysrrk44/18/18 2:30 PM KIRA DUTTA During your visit today, we recorded the following information about you: Temperature Pulse Blood pressure Weight 97.8 degrees 90/minute 151/92 107.2 kg Height 1.943 mMisty Marleny Ziegler 02/03/2018 3:13 PM SignedWhat is the reason for your visit today? CONSULTWho is your referring physician? Sami CamposAre you having poor oral intake? NOHave you had unintentional weight loss of 15 lbs/7 Kg in the last 3-6 months? NOBowels: regularWound: clean AND dryTemperature: NoDrains: Juliana Caban MS 02/04/2018 9:02 AM SignedSURGICAL SERVICES HANDPSERVICE DATE: 02/03/2018SERVICE TIME: 3:31 PMPRIMARY CARE PHYSICIAN: Mark Pan Jr, MDReferred by: self/friendSubjectiveCHIEF COMPLAINT: L scrotal swellingHISTORY OF PRESENT ILLNESS: Mr. Dinh is a 62 year old male who presents for 1year history of swelling in the L scrotum with associated dull, constant pain.Hx of L hernia repair in 2013 and bilateral vasectomy in 1988. Pt unsure ofwhether the swelling is related to the hernia repair.PAST MEDICAL HISTORY- 9 crushed discs (cervical and lumbar) and 4 broken vertebrae- due to traumain 1990- Arthritis- Fungal infections- Migraines- Tinnitus- Sensorineural hearing loss, unilateral, left ear, with restricted hearing onthe contralateral sidePAST SURGICAL HISTORY- Spinal surgery- R knee- L inguinal hernia with mesh - 2013- Hemorrhoids- Vasectomy bilateral - 1989FAMILY HISTORYMother- strokeFather - MISOCIAL HISTORYSmoking: quit in 1975Alcohol: alcoholic for 30 years, doesn't drink anymoreDrugs: smokes marijuanaSocial HistorySubstance Use Topics- Smoking status: Former Smoker- Smokeless tobacco: Never Used- Alcohol use Not on fileMEDICATIONS- cyclobenzaprine (flexaril): 10 mg, tid- celecoxib: 400 mg qid- fluconazole 100 mg, qidALLERGIESAllergen Reactions- Penicillin G HivesCOMPLETE REVIEW OF SYSTEMS:PAIN: negative for pain todayGENERAL: some unintentional weight loss, no malaise or feversHEENT: migraine headaches, tinnitus, sinusitis, no nose bleedsCARDIOVASCULAR: no chest pain, palpitationsPULM: no dyspnea, wheezing, coughingGI: no nausea, vomiting, diarrhea, constipationGU: no urinary frequency, incontinence, dysuriaObjectivePHYSICAL EXAM:BP 151/92 Pulse 90 Temp (Src) 97.8 (Tympanic) Ht 6' 4.5 (1.94m) Wt 236lb 4.8 oz (107.2kg) BMI 28.39 kg/(m2).General: sitting comfortably, in no acute distressCardio: RRR, normal S1 S2, no murmurs, rubs, gallopsPulm: CTAB, unlabored breathing on room airAbdominal: soft, non-tender, non-distended in all four quadrants. Slighttenderness on palpation of the inguinal canal. No hernia palpated or seen withcoughing.ASSESSMENT AND PLANMrPatricia Dinh is a 62 year old male who presents for 1 year history of swelling andpain in the L scrotum.Plan-SIGNATURE: Janet Caban MS PATIENT NAME: Connie DinhDATE: February 03, 2018 : 3:27 PM PAGER/CONTACT #:KIRA DUTTA MD 02/04/2018 9:02 AM SignedConsultation requested by Dr. Pan for an opinion regarding groin pain. Myfinal recommendations will be communicated back to the requesting physician byway of shared medical record or letter via [place] mailI have seen and evaluated the patient and discussed the case with the medicalstudent. I personally performed the physical exam and historyagree with theassessment and plan as documented in the resident?s note.Connie Dinh is a 62 year old male who is here for evaluation of left scrotalswelling. He has history of an open inguinal hernia repair with mesh in thepast as well as a vasectomy. He is able to do most all of the activity hedesires but the scrotal swelling does get in the way sometimes. On exam, I donot appreciate a hernia but I do see a difference between his left and righttesticle with the left being much larger. I would like to get an US of thescrotum to better evaluate this. I will see him back after he has his US. .Referring Provider: SELF [[id number]]Allergies As of Date: 02/03/2018 Noted Allergy ReactionPENICILLIN G 04[birth year]19[birth year]1969 4 - HivesDate Reviewed: 02/03/2018Reviewed by: Kira Dutta - Fully AssessedPrimary Visit Diagnosis:Scrotal mass [N50.9]Order(s):US SCROTUM AND CONTENTS [1961404] Order #: [id number] FUTUREPrescriptions as of 02/03/2018 Sig: CYCLOBENZAPRINE 10 MG AND IRR* CELECOXIB 400 MG CAPSULE Take 400 mg by mouth twice da* FLUCONAZOLE 100 MG TABLET CYCLOBENZAPRINE 10 MG TABLETProblem List As Of Date: 02/03/2018(None)Visit Notes:>> Mindy Farmer Ma Lorelei Feb 03, 2018 3:07 PM Status: SignedWhat is the reason for your visit today? CONSULTWho is your referring physician? Sami CamposAre you having poor oral intake? NOHave you had unintentional weight loss of 15 lbs/7 Kg in the last 3-6months? NOBowels: regularWound: clean AND dryTemperature: NoDrains: NoEncounter Number: [id number] Status:Closed by KIRA DUTTA MD on 02/04/18 Normal [facility] HISTORY PHYSICALon 8 HISTORY PHYSICAL HNO ID: [id number] thor: Janet Caban MSService: (none)Author Type: (none)Type: HANDPFiled: 02/04/2018 9:02 AMNote Text:SURGICAL SERVICES HANDPSERVICE DATE: 02/03/2018SERVICE TIME: 3:31 [facility] PHYSICIAN: Mark Pan Jr, MDReferred by: self/friendSubjectiveCHIEF COMPLAINT: L scrotal swellingHISTORY OF PRESENT ILLNESS: Mr. Dinh is a 62 year old male who presentsfor 1 year history of swelling in the L scrotum with associated dull,constant pain. Hx of L hernia repair in 2013 and bilateral vasectomy [id number]. Pt unsure of whether the swelling is related to the hernia repair.PAST MEDICAL HISTORY- 9 crushed discs (cervical and lumbar) and 4 broken vertebrae- due totrauma in 1990- Arthritis- Fungal infections- Migraines- Tinnitus- Sensorineural hearing loss, unilateral, left ear, with restrictedhearing on the contralateral sidePAST SURGICAL HISTORY- Spinal surgery- R knee- L inguinal hernia with mesh - 2013- Hemorrhoids- Vasectomy bilateral - 1988FAMILY HISTORYMother- strokeFather - MISOCIAL HISTORYSmoking: quit in 1975Alcohol: alcoholic for 30 years, doesn't drink anymoreDrugs: smokes marijuanaSocial HistorySubstance Use Topics- Smoking status: Former Smoker- Smokeless tobacco: Never Used- Alcohol use Not on fileMEDICATIONS- cyclobenzaprine (flexaril): 10 mg, tid- celecoxib: 400 mg qid- fluconazole 100 mg, qidALLERGIESAllergen Reactions- Penicillin G HivesCOMPLETE REVIEW OF SYSTEMS:PAIN: negative for pain todayGENERAL: some unintentional weight loss, no malaise or feversHEENT: migraine headaches, tinnitus, sinusitis, no nose bleedsCARDIOVASCULAR: no chest pain, palpitationsPULM: no dyspnea, wheezing, coughingGI: no nausea, vomiting, diarrhea, constipationGU: no urinary frequency, incontinence, dysuriaObjectivePHYSICAL EXAM:BP 151/92 Pulse 90 Temp (Src) 97.8 (Tympanic) Ht 6' 4.5 (1.94m) Wt 236 lb 4.8 oz (107.2kg) BMI 28.39 kg/(m2).General: sitting comfortably, in no acute distressCardio: RRR, normal S1 S2, no murmurs, rubs, gallopsPulm: CTAB, unlabored breathing on room airAbdominal: soft, non-tender, non-distended in all four quadrants. Slighttenderness on palpation of the inguinal canal. No hernia palpated or seenwith coughing.ASSESSMENT AND PLANMr. Dinh is a 62 year old male who presents for 1 year history ofswelling and pain in the L scrotum.Plan-SIGNATURE: Janet Caban MS PATIENT NAME: Connie DinhDATE: February 03, 2018 : 3:27 PM PAGER/CONTACT #: Normal [facility] PROGRESSon 02-03-2018 Protein mass conc HNO ID: [id number] thor: Kira Soliz: (none)Author Type: PhysicianType: Progress NotesFiled: 02/04/2018 9:02 AMNote Text:Consultation requested by Dr. Pan for an opinion regarding groin pain.My final recommendations will be communicated back to the requestingphysician by way of shared medical record or letter via US mailI have seen and evaluated the patient and discussed the case with themedical student. I personally performed the physical exam andhistoryagree with the assessment and plan as documented in the resident?snote.Connie Dinh is a 62 year old male who is here for evaluation of leftscrotal swelling. He has history of an open inguinal hernia repair withmesh in the past as well as a vasectomy. He is able to do most all of theactivity he desires but the scrotal swelling does get in the waysometimes. On exam, I do not appreciate a hernia but I do see adifference between his left and right testicle with the left being muchlarger. I would like to get an US of the scrotum to better evaluate this. I will see him back after he has his US. . Normal [facility] Encounters Encounter Date Encounter Type Care Provider Facility Start: 07-07-2024 End: 07-07-2024 ambulatory [facility] Start: 12-15-2023 End: 12-15-2023 ambulatory [facility] Start: 08-13-2023 End: 08-13-2023 ambulatory Breana L Chucho Facility:[facility] Start: 05-05-2023 End: 05-05-2023 Lab Drop off Breana Rankin [facility] Start: 04-14-2022 End: 04-15-[address] MARIAN MOLINA Facility:[facility] Start: 12-17-2021 End: 12-17-[address] MARIAN MOLINA Facility:[facility] Start: 05-19-2021 End: 09-14-2021 Recurring Chidi Wen [facility] Start: 09-30-2020 End: 10-01-2020 ambulatory LORRIE ALVARADO Facility:[facility] Start: 07-01-2019 End: 07-04-2019 Patient encounter procedure ROJAS DAVIS [facility] Start: 07-01-2019 End: 07-03-2019 Subsequent hospital visit by physician Hosea Fall Mri Room 1 [facility] MRI Comment on above: Cervical spondylosis with myelopathy Start: 03-31-2018 End: 04-01-2018 Patient encounter procedure BREANNA CHACON [facility] Start: 03-14-2018 End: 03-15-2018 Patient encounter procedure KIRA DUTTA [facility] Start: 02-04-2018 End: 02-04-2018 Patient encounter procedure KIRA DUTTA [facility] Start: 02-03-2018 End: 02-04-2018 Patient encounter procedure KIRA DUTTA [facility] Procedures Date Procedure Procedure Detail Performing Clinician Start: 09-30-2020 ANESTH GENITALIA SURGERY LORRIE JULIANNAYULI Start: 09-30-2020 REMOVAL OF HYDROCELE PU CHANEL ALVARADO Start: 07-01-2019 Mri spinal canal cer vical w/o contrast shannonl ROJAS DAVIS Start: 07-01-2019 Mri spinal canal cer vical w/o contrast issa Davis Work Phone: Arthroscopy of knee Chidi Wen Bilateral vasectomy Chidi Wen History of hernia repair Jed toni Wen Hydrocele (morpholog ic abnormality) Chidi Wen Procedure on back Chidi Cortez riojas Plan of Treatment Date Care Activity Detail Author Start: 06-28-2019 Annual Wellness Visi t (AWV) Annual Wellness Visit (AWV) [place] Start: 12-18-2018 Influenza vaccination Flu vaccine (# 1) [place] Start: 2018 Pneumococcal 65+ yea rs Vaccine (1 of 1 - PPSV23) Pneumococcal 65+ years Vaccine (1 of 1 - PPSV23) [place] Start: 10-11-2003 Colon cancer screen colonoscopy Colon cancer screen colonoscopy [place] Start: 10-11-2003 Shingles Vaccine (1 of 2) Shingles V accine (1 of 2) [place] Start: 1993 Lipid screen Lipid screen [place], [place] Start: 1972 DTaP/Tdap/Td vaccine (1 - Tdap) DTaP/Tdap/Td vaccine (1 - Tdap) [place] Start: 1968 HIV screen HIV screen [place], [place] Start: 1953 Hepatitis C screen Hepatitis C scree n [place], [place] Immunizations Immunization Date Immunization Notes Care Provider Jane thayer NEGATED: Highlighted row has not occurred!05-13-2020 influenza virus vaccine, unspecified formulation Chidi Wen [facility] Payers Date Payer Category Payer Medicare [id number] 2023 Private Health Insurance [id number] 2023 Medicaid [id number] 2019 Medicare [id number] 2019 Medicare MEDICARE MEDICAR E PART A AND B xxxxxxxxxxx 2019-Present [phone] [place] [address] xxxxxxxxxxx [id number] 2017 Unknown [id number] 2008 Unknown [id number] 1955 Unknown [id number] 1955 Unknown [id number] 1955 Unknown [id number] 1955 Unknown [id number] 593 1955 Unknown [id number] 727 1955 Unknown [id number] 727 1955 Unknown [id number] 727 Unknown [id number] Social History Date Type Detail Facility [facility] [place] Sex Assigned At Not on file [place] Start: 05-13-2020 Ex-smoker (finding) [facility] Male [facility] Clinical Note 12-15-2023 Note Date & Type Note Facility 12-15-2023 Note Nurse Consultation N ote Reason for Visit Here for fluzone high dose vaccine. Given today lt deltoid, cannot put in orders yet as the Lot # aren't loaded yet, Jeanette Lugo asked me to wait until she is in our office tomorrow and we will get it done. Assessment/Plan Encounter for immunization (Z23: Encounter for immunization) Medications Celebrate Multivitamin oral capsule, 1 tab, Oral, Daily cephalexin 500 mg Cap, 500 mg= 1 cap(s), Oral, q12hr cyclobenzaprine 10 mg Tab, 10 mg= 1 tab(s), Oral, TID, PRN fluconazole 200 mg Tab, 200 mg= 1 tab(s), Oral, Daily fluconazole 200 mg Tab, 200 mg= 1 tab(s), Oral, Daily, 5 refills influenza virus vaccine, inactivated HIGH DOSE preservative-free quadrivalent intramuscular susp, 0.7 mL, IntraMuscular, Once predniSONE 10 mg Tab, See Instructions, 2 refills Vitamin D 1000 intl units Tab, 25 mcg= 1 tab(s), Oral, Daily Allergies Dilaudid (itch) Nubain (itch break out) Seasonal (Unknown) penicillins (rash) Immunizations Vaccine Date Status Comments influenza virus vaccine, inactivated - Not Given Patient Refuses [facility] Clinical Note 12-17-2021 Note Date & Type Note Facility 12-17-2021 Note PROCEDURE: XR FOREAR M LT 2 VIEWS HISTORY: Laceration of upper limb COMPARISON: None. FINDINGS: BONES:No fracture, acute abnormality, or significant arthropathy. SOFT TISSUES:Posterior lateral soft tissue injury of the mid forearm. No radiopaque foreign body. EFFUSION:None visible. OTHER: Negative. IMPRESSION: 1. Soft tissue injury of the mid forearm; no radiopaque foreign body. 2. No acute bone abnormality. Electronically authenticated by: SOLANGE MAN Date: 2021-12-17 13:01 [facility] Evaluation + Plan note Note Date & Type Note Facility Evaluation + Plan note No data available for this section [facility] Hospital Discharge instructions Note Date & Type Note Facility Hospital Discharge instructions No data available for this section [facility] Progress note Note Date & Type Note Facility Progress note No data available for this section [facility] Summary Purpose Family History No Family History Records FoundNo Family History Records FoundNo Family History Records FoundNo Family History Records Found No data available for this section No Family History Records Found Advance Directives No Advanced Directives Records FoundDocuments on File Type Date Recorded Patient Category Consultant Expl anation Advance Directives and Living Will Power of Case Management Specialist Reason for Referral Status Reason Specialty Diagnoses / Procedures Referred By Contact Referred To Contact Pending Review Radiology Diagnoses Cervical spondylosis with myelopathy Procedures MRI CERVICAL SPINE WO CONTRAST Rojas Davis MD [address] [place] [id number] Assessments Diagnosis Cervical spondylosis with myelopathy Additional Source Comments (unrecognized sect ion and content) No Status Records FoundNo Status Records FoundNo Status Records FoundNo Status Records FoundNo Status Records Found INFORMATION SOURCE (unrecogn ized section and content) DATE CREATED AUTHOR 04/03/2018 [facility] DATE CREATED AUTHOR AUTHOR'S ORGANIZ ATION 07/03/2019 [facility] DATE CREATED AUTHOR AUTHOR'S ORGANIZ ATION 10/11/2020 [facility] DATE CREATED AUTHOR AUTHOR'S ORGANIZ ATION 04/17/2022 [facility] DATE CREATED AUTHOR AUTHOR'S ORGANIZ ATION 07/13/2024 [facility] Reason for Visit (unrecogniz ed section and content) Status Reason Specialty Diagnoses / Procedures Referre d By Contact Referred To Contact Diagnoses Other spondylosis with myelopathy, cervical region Procedures MRI CERVICAL SPINE WO CTRST [facility] Patient Care team informatio n (unrecognized section and content) Personnel Name: Breana Marquez Address: Address: [address] [place] [address]- FOR RECORDS PERTAINING TO PATIENTS WHO ARE OR HAVE BEEN ENROLLED IN A CHEMICAL DEPENDENCY/SUBSTANCEABUSE PROGRAM, SOME INFORMATION MAY BE OMITTED. This clinical summary was aggregated from multiple sources. Caution should be exercised in using it in the provision of clinical care. This summary normalizes information from multiple sources, and as a consequence, information in this document may materially change the coding, format and clinical context of patient data. In addition, data may be omitted in some cases. CLINICAL DECISIONS SHOULD BE BASED ON THE PRIMARY CLINICAL RECORDS. Sharkey [facility] [employer] [facility] provides no warranty or guarantee of the accuracy or completeness of information in this document.
== END 2024-08-03 14:31 | disposition home or self-care (01) ==
PROVIDERS: PCP Nurse Practitioner; Visit Provider Nurse Practitioner
DX: M54.2 Cervicalgia (principal); Z78.9 Other specified health status; M25.561 Pain in right knee; Z68.30 Body mass index [BMI] 30.0-30.9, adult; M17.11 Unilateral primary osteoarthritis, right knee
CPT/HCPCS: 72050; 73564